=== PATIENT | female | born 2000 | race Two or more races ===

== ENCOUNTER 2024-09-03 10:10 | Outpatient (CLI) | payer MEDICAID, SELFPAY ==
--- NOTE | 2024-09-03 10:24 | XR_ITS ---
Examination: Complete OB ultrasound greater than 14 weeks Date and time of exam: September 03, 2024 1028 hours INDICATIONS: Discrepancy size dates Findings: Viable intrauterine single fetus with single amniotic sac presentation cephalic spine maternal left Cardiac motion 129 BPM Placenta anterior grade 3 Umbilical cord insertion seen Amniotic fluid index 13 cm Ovaries obscured by the fetus. Composite estimated gestational age based on BPD, head circumference, abdominal circumference, femur length is 39 weeks 0 days Estimated weight 3645 g. Survey of intracranial anatomy, spinal anatomy, abdominal anatomy, four-chamber heart performed with no abnormalities identified. Impression: Viable intrauterine gestation cephalic presentation Estimated gestational age 39 weeks 0 days Estimated weight 3645 g.
[2024-09-03 11:27] VITALS: BP 124/86; PULSE 80
[2024-09-03 11:38] VITALS: TEMP 36.1; BMI 32.1
== END 2024-09-03 12:00 | disposition home or self-care (01) ==
LOC: S4S1 10:12 → S4SX 10:32
PROVIDERS: PCP Family Medicine; Referring Provider Obstetrics & Gynecology; Visit Provider Obstetrics & Gynecology
DX: Z34.03 Encounter for supervision of normal first pregnancy, third trimester (principal); Z36.89 Encounter for other specified antenatal screening; Z3A.39 39 weeks gestation of pregnancy
CPT/HCPCS: 59025; 76805

== ENCOUNTER 2024-09-11 10:05 | Inpatient (IN) | payer MEDICAID, SELFPAY ==
[2024-09-11] VITALS (54 sets, daily range): BP systolic 100–136; BP diastolic 67–87; PULSE 75–123; RESP 16–18; TEMP 37–37.4; O2SAT 96–100; BMI 32.1
[2024-09-11] MEDS: RINGERS LACTATED 1000 ML 1,000 ML 100 ML IV (10:34)
[2024-09-11] MEDS: OXYTOCIN in NS 20 units 20 UNIT/1,000 ML BAG 125 UNIT IV ×2 (10:41→16:57)
[2024-09-11] MEDS: MINERAL OIL 30 ML UDC TOP (10:46)
[2024-09-11] MEDS: METHYLERGONOVINE INJ 0.2 MG/ML VIAL IM (10:49)
[2024-09-11] MEDS: LIDOCAINE HCL 1% 20 ML VIAL INFL (10:55)
[2024-09-11] MEDS: fentaNYL CIT INJ 50 mCg/ML AMP 2ML 100 MCG IV (10:59)
--- NOTE | 2024-09-11 11:05 | PC.NURSE ---
09/11/2024 @ [address] BEGUM. TOTAL VOLUME 270 ML. PER M.D. NOTIFY WHEN OUTPUT IS GREATER THAN 250 ML.
[2024-09-11] MEDS: BENZO/LANO/ALOE (Dermoplast) 60 GM CAN 1 SPRAY TOP (11:11)
--- NOTE | 2024-09-11 11:15 | ESHP_ITS ---
Documentation for date of: 09/11/24 OB Labor/Induct. HPI History of Present Illness : 1 Para: 0 Term pregnancies: 0 pregnancies: 0 Living children: 0 History of Abortions: Spontaneous and Elective: 0 History of Vaginal deliveries: 0 History of sections: No History of : No Date of last menstrual period: 12/06/23 ANGELA: 09/11/24 Gestational age based on last menstrual period: 40 History of present illness: 24-year-old G1, P0 at 40 weeks and 0 days, ANGELA 09/11/2024 presented to triage with contractions that started about 2 hours earlier. On presentation patient was noted to be fully dilated with station at +1. Patient proceeded to deliver precipitously. She received care at [facility]. All records were available and reviewed History of Present Adequate Care: Yes Labs Labs: Negative: Hepatitis B, HIV, Chlamydia and Gonorrhea and Unknown: Group Beta Strep Review of Systems Review of Systems Systems Reviewed: All systems reviewed, normal except as documented Past Medical History Surgical History SURGICAL: Negative Section Meds Home Medications and Allergies Home Medications ?Medication ?Instructions ?Recorded ?Confirmed ?Type vit no.95-ferrous 1 tab PO DAILY 05/27/24 09/11/24 History fumarate 28 mg-folic acid 800 mcg tablet () Allergies Allergy/AdvReac Type Severity Reaction Status Date / Time No Known Allergies Allergy Verified 09/11/24 10:58 OB Exam Physical Exam Vital signs: Pulse BP Pulse Ox 96 134/79 H 98 09/11/24 11:01 09/11/24 11:01 09/11/24 11:14 Constitutional Constitutional: no acute distress Routine HEENT Exam Head: Present normocephalic and atraumatic Eye: Present EOMI and PERRL ENT: Present mucous membranes moist Routine Neck Exam Neck: Present supple and trachea midline Routine Cardiovascular Exam Cardiovascular: Present RRR Routine Abdominal Exam Abdominal: Present soft and normoactive bowel sounds Detailed Labor and Delivery Exam Dilation (cm): 10 Routine Extremities Exam Extremities: Present full ROM Routine Skin Exam Skin: Present intact, dry and warm Routine Neurological Exam Neurological: Present alert, oriented X3 and CN II-XII intact Routine Psychiatric Exam Psychiatric: Present normal affect and normal thought process OB Assessment & Plan Assessment and Plan (1) Precipitous delivery: Status: Acute Assessment and plan: Admit to inpatient status Delivery complicated by hemorrhage, patient was given Methergine x 1 and a bag 3 uterine tamponade balloon was placed with 280 cc of inflation. Young catheter was placed with satisfactory hemostasis. Patient was given 2 g Ancef x 1. Expectant management with routine care
--- NOTE | 2024-09-11 11:18 | PD.LDDELS ---
Data ([facility]) Data Hx Section: No : 1 Para: 0 Term: 0 : 0 : 0 Delivery Data ([facility]) Labor Data ROM Date: 09/11/24 ROM Time: 10:00 Rupture Type: SROM Amniotic Fluid: Clear Delivery Data Labor Onset Stage 1 Date: 09/11/24 Labor Onset Stage 1 Time: 09:00 Labor Onset Stage 2 Date: 09/11/24 Labor Onset Stage 2 Time: 10:16 Delivery Date: 09/11/24 Delivery Time: 10:43 Placenta Delivery Date: 09/11/24 Placenta Delivery Time: 10:46 Delivered by: Venu Scott Delivery nurse: Suly Cardona Other staff at delivery: Nurse Other staff at delivery: Nursery Nurse Other staff at delivery: Arina Romero Other staff at delivery: ObanaFatuma Delivery Method Delivery: Vaginal Delivery Type: Spontaneous Anesthesia Type Primary Anesthesia: Local Placenta Placenta Delivery: Spontaneous Umbilical Cord Umbilical Vessels: 3 Nuchal Cord: x1 Body Cord: x1 Data ([facility]) Data Gender: Male Weight Grams: 3960 1 Minute Total: 9 5 Minute Total: 9
[2024-09-11] MEDS: TRANEXAMIC ACID 1,000 MG IVPB 1,000 MG/100 ML BAG 200 MG IV (11:23)
[2024-09-11] MEDS: IBUPROFEN TAB 400 MG TABLET 800 MG PO (11:27)
[2024-09-11] MEDS: ceFAZolin/D5W 2 GM IV 2 GM/100 ML BAG IV (12:03)
[2024-09-11 12:09] LABS: Basophils % (Auto) 0 % (0-2.5); Eosinophils % (Auto) 0 % (0-10); Hematocrit 40.5 % (36.0-46.0); Immature Granulocytes % (Auto) 0 % (0-0); Immature Granulocytes Auto 0.04 Thou/mm3 (0.00-0.00); Lymphocytes # (Auto) 2.8 Thou/mm3 (1.0-4.8); Lymphocytes % (Auto) 30 % (10-50); Mean Corpuscular HGB Conc 34.6 g/dl (31.0-37.0); Mean Corpuscular Hemoglobin 29.7 pg (25.0-35.0); Mean Corpuscular Volume 86 fL (80-100); Monocytes # (Auto) 0.5 Thou/mm3 (0.0-0.8); Monocytes % (Auto) 5 % (0-12); Neutrophils # (Auto) 6.1 Thou/mm3 (1.8-7.7); Neutrophils % (Auto) 65 % (37-80); Nucleated Red Blood Cell % 0 /100 WBC (0); Platelet Count 296 Thou/mm3 (140-440); RDW Standard Deviation 44.9 fL (36.4-46.3); Red Blood Count 4.71 Miln/mm3 (4.00-5.20); White Blood Count 9.4 Thou/mm3 (3.6-11.0)
[2024-09-11 12:54] LABS: Syphilis Nonreactive (Nonreactive)
[2024-09-11] MEDS: ACETAMINOPHEN 325 MG TABLET 650 MG PO ×2 (15:45→21:55)
[2024-09-12 04:00] VITALS: BP 113/67; PULSE 81; RESP 18; TEMP 36.6; O2SAT 97
[2024-09-12 08:11] LABS: Basophils % (Auto) 0 % (0-2.5); Eosinophils % (Auto) 0 % (0-10); Hematocrit 30.3 % (36.0-46.0); Hemoglobin 10.7 g/dL (12.0-16.0); Immature Granulocytes % (Auto) 1 % (0-0); Immature Granulocytes Auto 0.08 Thou/mm3 (0.00-0.00); Lymphocytes # (Auto) 2.4 Thou/mm3 (1.0-4.8); Lymphocytes % (Auto) 19 % (10-50); Mean Corpuscular HGB Conc 35.3 g/dl (31.0-37.0); Mean Corpuscular Hemoglobin 30.9 pg (25.0-35.0); Mean Corpuscular Volume 88 fL (80-100); Monocytes # (Auto) 0.7 Thou/mm3 (0.0-0.8); Monocytes % (Auto) 6 % (0-12); Neutrophils # (Auto) 9.1 Thou/mm3 (1.8-7.7); Neutrophils % (Auto) 74 % (37-80); Nucleated Red Blood Cell % 0 /100 WBC (0); Platelet Count 232 Thou/mm3 (140-440); RDW Standard Deviation 46.3 fL (36.4-46.3); Red Blood Count 3.46 Miln/mm3 (4.00-5.20); White Blood Count 12.2 Thou/mm3 (3.6-11.0)
[2024-09-12 08:30] VITALS: BP 115/69; PULSE 91; RESP 15; TEMP 36.6; O2SAT 96
[2024-09-12] MEDS: IBUPROFEN TAB 400 MG TABLET 800 MG PO (08:44)
--- NOTE | 2024-09-12 08:52 | ESPR_ITS ---
Subjective Subjective Interval history: Delivery type: Patient doing well this morning. No acute complaints. Ambulating, tolerating p.o. and voiding without difficulty. HTN/Pre-Eclampsia screen: No chest pain, shortness of breath, headache, visual changes, epigastric or right upper quadrant pain. Breast-feeding, lochia diminishing. Bowel: Flatus+/ BM+ Exam Vital Signs Temp Pulse Resp BP Pulse Ox O2 Del Method 97.8 F 81 18 113/67 97 Room Air 09/12/24 04:00 09/12/24 04:00 09/12/24 04:00 09/12/24 04:00 09/12/24 04:00 09/12/24 04:00 Constitutional Constitutional: no acute distress Routine HEENT Exam Head: Present normocephalic and atraumatic Eye: Present EOMI and PERRL ENT: Present mucous membranes moist Routine Neck Exam Neck: Present supple and trachea midline Routine Respiratory Exam Respiratory: Present chest non-tender, lungs clear, normal breath sounds and no resp distress Routine Cardiovascular Exam Cardiovascular: Present RRR Routine Abdominal Exam Abdominal: Present soft and normoactive bowel sounds Routine Extremities Exam Extremities: Present full ROM Routine Skin Exam Skin: Present intact, dry and warm Routine Neurological Exam Neurological: Present alert, oriented X3 and CN II-XII intact Routine Psychiatric Exam Psychiatric: Present normal affect and normal thought process Objective Labs 09/12/24 07:43 Labs: Laboratory Results - last 24 hr 09/11/24 09/11/24 09/12/24 10:28 10:52 07:43 WBC 9.4 12.2 H RBC 4.71 3.46 L Hgb 14.0 10.7 L D Hct 40.5 30.3 L D MCV 86 88 MCH 29.7 30.9 MCHC 34.6 35.3 RDW Std Deviation 44.9 46.3 Plt Count 296 232 D Neut % (Auto) 65 74 Lymph % (Auto) 30 19 [place] % (Auto) 5 6 Eos % (Auto) 0 0 Baso % (Auto) 0 0 Neut # (Auto) 6.1 9.1 H Lymph # (Auto) 2.8 2.4 [place] # (Auto) 0.5 0.7 Eos # (Auto) 0.0 0.0 Baso # (Auto) 0.0 0.0 Immature Gran # (Auto) 0.04 H 0.08 H Absolute Nucleated RBC 0.00 0.00 Immature Gran % 0 1 H Nucleated RBC % 0 0 Syphilis Serology Nonreactive Blood Type O Positive Antibody Screen NEGATIVE Blood Bank Wristband ID Yes Assessment & Plan Problem List (1) Precipitous delivery: Status: Acute Assessment and plan: 1. Continue routine /post-op care 2. Labs reviewed, cbc appropriate 3. Remove dressing/Young 4. Encourage to ambulate, shower 5. Encourage PO intake, breast feeding Time Spent With Patient Time: Total time spent is greater than 50% in coordination of care (as documented) at patient's floor/unit and/or counseling patient:
--- NOTE | 2024-09-12 08:52 | PD.LDDS ---
DS: Providers Provider Date of admission: 09/11/24 10:23 Primary care physician: Physician No Primary/Family Admitting Provider: Venu Scott MD Attending Provider on Admission: Venu Scott MD Consults: 09/11/24 11:31 Referral Routine Comment: Attending Provider on DC: Venu Scott MD Discharging Provider: Venu Scott MD DS: Diagnosis Discharge Diagnosis (1) Precipitous delivery: Status: Acute Problem List Completed Was Problem List Reviewed/Reconciled?: Yes Summary/Hosp Course Brief History: 24-year-old G1, P0 at 40 weeks and 0 days, ANGELA 09/11/2024 presented to triage with contractions that started about 2 hours earlier. On presentation patient was noted to be fully dilated with station at +1. Patient proceeded to deliver precipitously. She received care at [facility]. All records were available and reviewed Time Spent with Patient Time attestation: Total time spent providing and/or coordinating discharge services: Exam Vital Signs Temp Pulse Resp BP Pulse Ox O2 Del Method 97.8 F 81 18 113/67 97 Room Air 09/12/24 04:00 09/12/24 04:00 09/12/24 04:00 09/12/24 04:00 09/12/24 04:00 09/12/24 04:00 Discharge Plan Plan Patient Disposition: HOME (Self Care) Patient condition on transfer: Stable Prescriptions/Referrals Prescriptions/Med Rec: New ibuprofen 400 mg Tablet 800 mg PO Q8HR PRN (Reason: Pain Scale 4-6 (Moderate) 10 Days Qty: 30 0RF amoxicillin-pot clavulanate 875-125 mg tablet 1 tab PO BID 7 Days Qty: 14 0RF [place] 20 % aerosol 1 applic topical QID PRN (Reason: skin irritation) 7 Days Qty: 57 0RF Triple Antibiotic 3.5mg-400 unit- 5,000 unit/gram ointment 1 applic topical TID 7 Days Qty: 30 0RF Continued PNV cmb#95-ferrous fumarate-FA [] 28 mg iron- 800 mcg tablet 1 tab PO DAILY Patient Comments: TAKE 1 TABLET BY MOUTH EVERY DAY Referrals: No Primary/Family,Physician [Primary Care Provider] - Venu Scott MD [Physician] - Patient/Caregiver Discharge Instructions Meds to Beds: Yes Discharge Activity: activity as tolerated Print Language: Prydeinig Stand Alone Forms: Prachi Award Info., Patient Portal Info Letter Planned Discharge Date 09/12/24
== END 2024-09-12 14:51 | disposition home or self-care (01) | DRG 542 ==
LOC: S4SX 10:52 → S4NX 13:38
PROVIDERS: Admitting Provider Obstetrics & Gynecology; Visit Provider Obstetrics & Gynecology
DX: O62.3 Precipitate labor (principal); Z37.0 Single live birth; Z3A.40 40 weeks gestation of pregnancy; O69.81X0 Labor and delivery complicated by cord around neck, without compression, not applicable or unspecified; O69.82X0 Labor and delivery complicated by other cord entanglement, without compression, not applicable or unspecified; O72.1 Other immediate postpartum hemorrhage
CPT/HCPCS: 36415; 59025; 59409; 84112; 85025; 86780; 86850; 86900; 86901; 94762; J0689; J2210; J2590; J3010; J3490; J7120; A9270; J0690